=== PATIENT | male | born 1945 | race Caucasian/White ===

== ENCOUNTER → 2017-07-17 | Outpatient (CLI) | payer MEDICARE, OTHER ==
[~2017-07-17] VITALS: Ht 165.1 cm; Wt 74.5 kg
[~2017-07-17] MED LIST: AMLO-147 PO; CARV12.579 PO; CLOP75TA27 PO; DUTA0.5C PO; FENO134C PO; HYDR-3672 PO; OLME20TA20 PO; POTA10TA15 PO; SIMV20TA PO; SITA1TAB PO; TAMS0.4C2 PO
[2017-07-17 11:36] VITALS: BP 172/81; PULSE 64; RESP 18; Ht 165.1 cm; Wt 74.5 kg
--- NOTE | 2017-07-17 15:15 | PN ---
Date/Time of Note Date/Time of Note DATE: 07/17/17 TIME: 15:10 Assessment/Plan Assessment/Plan Assessment/Plan [facility] Progress Note Date of Service: 07/17/2017 Today's Impression & Plan: Overall has remained stable postoperatively and doing remarkably well. No further reported issues with diarrhea. No major intra-abdominal issues or evidence for complications/surgical site infection. No indication for acute surgical intervention. L inguinal hernia is asymptomatic and at this time, does not require any surgical intervention. But if it becomes symptomatic, would recommend expedited visit with us to intervene. Explained all the above to the patient (no family present and undermined discussions with the patient) with the help of official [facility]-contracted variety lathe operator and answered all questions. The patient appeared to understand and agreed with the plans. With above assessment, I've recommended the following for today: 1. F/u with us prn 2. F/u with Dr. Diego Thank you again for allowing us to participate in the care of this very pleasant gentleman and I'm certain his wonderful family. If there are any questions, please feel free to call me at area code [phone]. Nature presenting problem: Risk Complexity decision making: High complexity Please note: Spelling or grammatical errors in this note are likely due to EHR/ dictation systems and are not reflective of patient care quality. Occasional wrong-word or sound-alike substitutions may have occurred due to the inherent limitations of voice recognition software. Please read the chart carefully and recognize, using context, where the substitutions have occurred. The chart may also contain mistakes due to difficulties with voice recognition software. Also please note that the dictation timestamp of this note does not necessarily reflected time of the visit for this service. Updated clinical summary: A very pleasant 72-year-old gentleman with multiple comorbidities including coronary artery disease, hypertension and previous CVA, along with others, presenting with a picture concerning for incarcerated right inguinal hernia which has since spontaneously reduced since admission to the hospital. Comorbidities: 1. Diabetes mellitus 2. Hypertension 3. CVA 4. Coronary artery disease 5. BMI 30.5 6. Hypokalemia 7. Possible urinary tract infection 8. Mild right hydronephrosis down to the urinary bladder. No obstructing stone is identified. There is urothelial enhancement along the right renal collecting system, pelvis, and ureter, suggestive of a UTI. There is no evidence of pyelonephritis. Correlation with urinalysis and CBC is recommended. This could be further evaluated with a CT urogram if clinically warranted. 9. Markedly enlarged prostate gland, with an irregular protrusion into the urinary bladder lumen. It is unclear if this represents the etiology of the right ureteral obstruction. A neoplastic process is not excluded and correlation with PSA level is recommended. 10. Mild to moderate atherosclerotic arterial calcifications. 11. IVC filter in place. 12. Small to moderate fat-containing left inguinal hernia. 13. Status post right total hip arthroplasty and internal fixation of the right acetabulum. 14. Trace bilateral pleural effusions. 15. Status post hip surgery 16. S/p laparoscopic right inguinal hernia repair with mesh at [facility] on 06/18/17 Subjective: No major events or complaints since d/c home. No major pain complaints and reportedly under control with medications that he takes for his back. No N/V, SOB or CP. + bowel activity Objective: Vitals: reviewed; please also see EHR Physical Exam: Lungs: breathing comfortably without tachypnea; no audible wheezes, rales or rhonchi on gross exam Abd: Soft, non-tender, and non-distended; no peritoneal signs or guarding; incision dressings are clean, dry, and intact without any evidence of erythema, edema, discharge, or hernia Skin: Appears pink and feels warm to touch. Neuro: Awake, alert and follows commands appropriately Exam/Review of Systems Vital Signs Vitals Vital Signs Date Time Temp Pulse Resp B/P Pulse Ox O2 Delivery O2 Flow Rate FiO2 07/17/17 11:36 98.3 64 18 172/81 96 Room Air LICHA ALVARADO M.D. Jul 17, 2017 15:15
== END | disposition home or self-care (01) ==
LOC: HPC 11:26
PROVIDERS: ATTEND Transplant Surgery
DX: K40.90 Unilateral inguinal hernia, without obstruction or gangrene, not specified as recurrent (principal); E11.9 Type 2 diabetes mellitus without complications; I10 Essential (primary) hypertension; I25.10 Atherosclerotic heart disease of native coronary artery without angina pectoris; Z86.73 Personal history of transient ischemic attack (TIA), and cerebral infarction without residual deficits; E87.6 Hypokalemia; N13.30 Unspecified hydronephrosis; I70.90 Unspecified atherosclerosis; Z96.641 Presence of right artificial hip joint